=== PATIENT | male | born 1945 | race African-American/Black ===

== ENCOUNTER → 2022-11-15 | Emergency (ER) | payer OTHER ==
[~2022-11-15] VITALS: Ht 165.1 cm; Wt 52.2 kg
[~2022-11-15] MED LIST: ACETAMINOPHEN 325 MG TABLET ONE; ACETAMINOPHEN 325 MG TABLET PO ONE; LIDOCAINE 1%-EPI 1:100,000 20 ML VIAL ONE; LIDOCAINE 1%-EPI 1:100,000 20 ML VIAL TP ONE; TDAP [DIPH/PERTUSSIS/TET] 0.5 ML VIAL IM ONE
--- NOTE | 2022-11-15 06:52 | NUR ---
[id number] FROM [facility]. ROLLED OUT OF BED 1FT OF THE GROUND, WITH R FRONTAL HEAD LACERATION. UNKNOWN KO. ON ASPIRIN. PLACED IN BED, VITALS CHECKED. WOUND ASSESSED. NOTED W/ ALEGRIA CATH DRAINING CLEAR, YELLOW URINE.
--- NOTE | 2022-11-15 07:00 | NUR ---
WOUND CLEANED. 3CM LAC ON HEAD. MADE AWARE.
--- NOTE | 2022-11-15 07:05 | NUR ---
PT TAKEN TO CT W/ TECH
--- NOTE | 2022-11-15 09:05 | NUR ---
CALLED [facility] FOR TRANSPORT ETA 60-90 MINS.
[2022-11-15 10:46] VITALS: BP 123/90; TEMP 98.2
== END ==
LOC: ER 06:57
DX: S01.01XA Laceration without foreign body of scalp, initial encounter (principal); R51.9 Headache, unspecified; M54.2 Cervicalgia; J45.909 Unspecified asthma, uncomplicated; Z88.8 Allergy status to other drugs, medicaments and biological substances; W06.XXXA Fall from bed, initial encounter; Y93.89 Activity, other specified; Y92.89 Other specified places as the place of occurrence of the external cause; Y99.8 Other external cause status
CPT/HCPCS: 12034; 70450; 72125; 90471; 90715; 99285; A6403; J3490

== ENCOUNTER 2023-04-01 12:46 | Emergency (ER) | payer OTHER ==
[~2023-04-01] VITALS: Ht 172.7 cm; Wt 56.2 kg
[2023-04-01 12:55] VITALS: BP 105/66; TEMP 98.2
[2023-04-01 13:24] LABS: BASOPHILS # (AUTO) 0.1 K/uL (0.0-0.2); EOSINOPHILS # (AUTO) 0.4 K/uL (0.0-0.7); EOSINOPHILS % (AUTO) 4.5 % (0.0-6.0); HEMATOCRIT 43 % (39-51); HEMOGLOBIN 13.6 g/dL (13.5-17.5); LYMPHOCYTES # (AUTO) 1.9 K/uL (0.8-4.8); LYMPHOCYTES % (AUTO) 20.3 % (20.0-44.0); MEAN CORPUSCULAR HEMOGLOBIN 25 PG (26.0-33.0); MEAN CORPUSCULAR HGB CONC 32 g/dl (31.0-36.0); MEAN CORPUSCULAR VOLUME 79 fL (80-96); MONOCYTES # (AUTO) 0.8 K/uL (0.1-1.30); MONOCYTES % (AUTO) 8.5 % (2.0-12.0); NEUTROPHILS # (AUTO) 6.1 K/uL (1.8-8.9); NEUTROPHILS % (AUTO) 65.7 % (43.0-81.0); PLATELET COUNT (AUTO) 282 K/uL (150-450); WHITE BLOOD COUNT (AUTO) 9.3 K/uL (4.3-11.0)
[2023-04-01 13:24] LABS: APPEARANCE,URINE CLOUDY (CLEAR); BILIRUBIN,URINE NEGATIVE (NEGATIVE); BLOOD, URINE 3+ Ery/uL (NEGATIVE); COLOR,URINE YELLOW (YELLOW); KETONES,URINE TRACE mg/dL (NEGATIVE); LEUKOCYTE ESTERASE ,URINE 3+ (NEGATIVE); NITRITE, URINE POSITIVE (NEGATIVE); PROTEIN,URINE 2+ mg/dl (NEGATIVE); UGLUCOSE NEGATIVE (NEGATIVE); UROBILINOGEN,URINE 0.2 EU/dL (0.2)
[2023-04-01 13:30] LABS: CALCIUM, SERUM 9.2 mg/dL (8.5-10.1); CARBON DIOXIDE 27 mmol/L (21-32); CHLORIDE 101 mmol/L (98-107); CREATININE 0.8 mg/dL (0.6-1.3); GLUCOSE 89 mg/dL (74-106); SODIUM SERUM 138 mmol/L (136-145); UREA NITROGEN, BLOOD 16 mg/dL (7-18)
[2023-04-01 13:38] LABS: RBC,URINE 81-100 /HPF (0-2); WBC,URINE 81-100 /HPF (0-3)
[2023-04-01 13:39] LABS: ADD URINE CULTURE YES; BACTERIA,URINE Many /HPF (None Seen); SQUAMOUS EPITHELIAL CELL,UR Few /HPF (None Seen)
[2023-04-01] MEDS ORDERED: LIDOCAINE 2% JEL UROJET 10 ML MM ONE (17:32)
[2023-04-01 18:38] VITALS: O2SAT 100
== END 2023-04-01 18:38 | disposition home or self-care (01) ==
LOC: ER 12:55
DX: Z46.6 Encounter for fitting and adjustment of urinary device (principal); J44.9 Chronic obstructive pulmonary disease, unspecified; Z88.1 Allergy status to other antibiotic agents
CPT/HCPCS: 36415; 80048-TC; 81001; 85025-TC; 87086-TC; J3490

== ENCOUNTER 2023-04-21 18:16 | Emergency (ER) | payer OTHER ==
[~2023-04-21] VITALS: Ht 177.8 cm; Wt 61.2 kg
[2023-04-21 19:41] LABS: BASOPHILS # (AUTO) 0.1 K/uL (0.0-0.2); BASOPHILS % (AUTO) 0.7 % (0.0-2.0); EOSINOPHILS # (AUTO) 0.5 K/uL (0.0-0.7); EOSINOPHILS % (AUTO) 6.6 % (0.0-6.0); HEMATOCRIT 39 % (39-51); HEMOGLOBIN 12.2 g/dL (13.5-17.5); LYMPHOCYTES # (AUTO) 1.9 K/uL (0.8-4.8); LYMPHOCYTES % (AUTO) 25.2 % (20.0-44.0); MEAN CORPUSCULAR HEMOGLOBIN 25 PG (26.0-33.0); MEAN CORPUSCULAR HGB CONC 31 g/dl (31.0-36.0); MEAN CORPUSCULAR VOLUME 80 fL (80-96); MONOCYTES # (AUTO) 0.6 K/uL (0.1-1.30); MONOCYTES % (AUTO) 8.7 % (2.0-12.0); NEUTROPHILS # (AUTO) 4.4 K/uL (1.8-8.9); NEUTROPHILS % (AUTO) 58.8 % (43.0-81.0); PLATELET COUNT (AUTO) 297 K/uL (150-450); RED CELL DISTRIBUTION WIDTH 14.8 % (11.5-15.0); WHITE BLOOD COUNT (AUTO) 7.5 K/uL (4.3-11.0)
[2023-04-21 19:59] LABS: CREATININE 0.6 mg/dL (0.6-1.3); POTASSIUM 3.8 mmol/L (3.5-5.1)
[2023-04-21 20:28] LABS: APPEARANCE,URINE SLIGHTLY CLOUDY (CLEAR); BILIRUBIN,URINE NEGATIVE (NEGATIVE); BLOOD, URINE 1+ Ery/uL (NEGATIVE); COLOR,URINE YELLOW (YELLOW); KETONES,URINE NEGATIVE (NEGATIVE); LEUKOCYTE ESTERASE ,URINE 3+ (NEGATIVE); NITRITE, URINE POSITIVE (NEGATIVE); PROTEIN,URINE NEGATIVE (NEGATIVE); UGLUCOSE NEGATIVE (NEGATIVE); UROBILINOGEN,URINE 0.2 EU/dL (0.2)
[2023-04-21 20:29] LABS: BILIRUBIN,TOTAL 0.1 mg/dL (0.2-1.0)
[2023-04-21 20:30] LABS: ALBUMIN 3.4 g/dL (3.4-5.0); BILIRUBIN,DIRECT 0.1 mg/dL (0.0-0.2); TOTAL PROTEIN, SERUM 7.2 g/dL (6.4-8.2)
[2023-04-21 21:26] LABS: WBC,URINE 51-80 /HPF (0-3)
[2023-04-21 21:27] LABS: ADD URINE CULTURE YES; BACTERIA,URINE 1+ /HPF (None Seen); SQUAMOUS EPITHELIAL CELL,UR None Seen /HPF (None Seen)
[2023-04-21] MEDS ORDERED: CEFD300C3 PO (22:47)
[2023-04-21 23:40] VITALS: BP 122/66; TEMP 98; O2SAT 100
== END 2023-04-21 23:41 ==
LOC: ER 18:25
DX: N39.0 Urinary tract infection, site not specified (principal); R31.9 Hematuria, unspecified; J45.909 Unspecified asthma, uncomplicated; Z88.8 Allergy status to other drugs, medicaments and biological substances
CPT/HCPCS: 36415; 80048-TC; 80076-TC; 81001; 83690-TC; 85025-TC; 87086-TC

== ENCOUNTER 2023-05-21 13:05 | Emergency (ER) | payer OTHER, MEDICAID ==
[~2023-05-21] VITALS: Ht 170.2 cm; Wt 76.7 kg
[~2023-05-21 13:05] MED LIST changes: -ACETAMINOPHEN 325 MG TABLET ONE; -ACETAMINOPHEN 325 MG TABLET PO ONE; +CEFD300C3 PO; -LIDOCAINE 1%-EPI 1:100,000 20 ML VIAL ONE; -LIDOCAINE 1%-EPI 1:100,000 20 ML VIAL TP ONE; -TDAP [DIPH/PERTUSSIS/TET] 0.5 ML VIAL IM ONE
[2023-05-21] MEDS ORDERED: LIDOCAINE 2% JEL UROJET 10 ML MM ONE (13:53)
[2023-05-21 15:31] LABS: APPEARANCE,URINE CLOUDY (CLEAR); BILIRUBIN,URINE NEGATIVE (NEGATIVE); BLOOD, URINE 3+ Ery/uL (NEGATIVE); COLOR,URINE YELLOW (YELLOW); KETONES,URINE NEGATIVE (NEGATIVE); LEUKOCYTE ESTERASE ,URINE 1+ (NEGATIVE); NITRITE, URINE POSITIVE (NEGATIVE); PH,URINE 6.5 (5.0-8.0); PROTEIN,URINE 2+ mg/dl (NEGATIVE); UGLUCOSE NEGATIVE (NEGATIVE); UROBILINOGEN,URINE 0.2 EU/dL (0.2)
[2023-05-21 15:54] LABS: BASOPHILS % (AUTO) 0.6 % (0.0-2.0); EOSINOPHILS # (AUTO) 0.3 K/uL (0.0-0.7); EOSINOPHILS % (AUTO) 3.6 % (0.0-6.0); HEMATOCRIT 42 % (39-51); HEMOGLOBIN 12.9 g/dL (13.5-17.5); LYMPHOCYTES # (AUTO) 1.7 K/uL (0.8-4.8); LYMPHOCYTES % (AUTO) 22.7 % (20.0-44.0); MEAN CORPUSCULAR HEMOGLOBIN 25 PG (26.0-33.0); MEAN CORPUSCULAR HGB CONC 31 g/dl (31.0-36.0); MEAN CORPUSCULAR VOLUME 80 fL (80-96); MONOCYTES # (AUTO) 0.6 K/uL (0.1-1.30); MONOCYTES % (AUTO) 8.4 % (2.0-12.0); NEUTROPHILS # (AUTO) 4.8 K/uL (1.8-8.9); NEUTROPHILS % (AUTO) 64.7 % (43.0-81.0); PLATELET COUNT (AUTO) 303 K/uL (150-450); RED BLOOD CELL COUNT(AUTO) 5.19 MIL/uL (4.5-6.0); RED CELL DISTRIBUTION WIDTH 14.5 % (11.5-15.0); WHITE BLOOD COUNT (AUTO) 7.4 K/uL (4.3-11.0)
[2023-05-21 16:01] LABS: CALCIUM, SERUM 9.4 mg/dL (8.5-10.1); CREATININE 0.7 mg/dL (0.6-1.3); POTASSIUM 5.2 mmol/L (3.5-5.1)
[2023-05-21 16:03] LABS: RBC,URINE 51-80 /HPF (0-2)
[2023-05-21 16:04] LABS: ADD URINE CULTURE YES; BACTERIA,URINE 2+ /HPF (None Seen); MUCUS,URINE Few /LPF (None Seen); SQUAMOUS EPITHELIAL CELL,UR 0-2 /HPF (None Seen)
[2023-05-21 16:25] LABS: ALBUMIN 3.6 g/dL (3.4-5.0); BILIRUBIN,DIRECT 0.1 mg/dL (0.0-0.2); BILIRUBIN,TOTAL 0.2 mg/dL (0.2-1.0)
[2023-05-21] MEDS ORDERED: CEFTRIAXONE 1 G in IV D5W 50 ML IV ONE (16:30)
[2023-05-21] MEDS ORDERED: CEFD300C3 PO (16:31)
[2023-05-21] MEDS ORDERED: IBUP-1955 PO (16:31)
[2023-05-21] MEDS ORDERED: CEFTRIAXONE 1GM BAG (ER ONLY) 50 ML IV ONE (16:44)
[2023-05-21 19:07] VITALS: BP 113/67; TEMP 98.3; O2SAT 97
== END 2023-05-21 19:30 | disposition home health service (06) ==
LOC: ER 13:10
DX: N39.0 Urinary tract infection, site not specified (principal); R31.9 Hematuria, unspecified; J45.909 Unspecified asthma, uncomplicated; Z88.8 Allergy status to other drugs, medicaments and biological substances
CPT/HCPCS: 99284; 96365; 51701; 85025; 80048; 87086; 80076; 81001; 36415; J3490; A4223; J0696